=== PATIENT | male | born 1995 | race Caucasian/White ===

== ENCOUNTER 2022-03-12 05:25 | Emergency (ER) | payer BC ==
[~2022-03-12] VITALS: Ht 172.7 cm; Wt 70.8 kg
[2022-03-12 05:36] VITALS: BP 146/86
== END 2022-03-12 10:16 | disposition left against medical advice (07) ==
LOC: ER 05:25
DX: Z53.21 Procedure and treatment not carried out due to patient leaving prior to being seen by health care provider (principal)